=== PATIENT | male | born 1985 | race Caucasian/White ===

== ENCOUNTER → 2021-09-17 10:09 | Outpatient (BNVA) | payer OTHER, SELFPAY | PROVIDERS: PCP Internal Medicine; Visit Provider Internal Medicine | DX: M43.07 Spondylolysis, lumbosacral region (principal); M43.17 Spondylolisthesis, lumbosacral region | CPT/HCPCS: 99202 ==

== ENCOUNTER 2022-05-25 15:40 | Inpatient (IN) | payer OTHER, SELFPAY ==
--- NOTE | 2022-05-25 15:52 | ECG_ITS ---
Test Reason : GENERAL MEDICAL Blood Pressure : / mmHG Vent. Rate : 078 BPM Atrial Rate : 078 BPM P-R Int : 170 ms QRS Dur : 082 ms QT Int : 374 ms P-R-T Axes : 066 062 036 degrees QTc Int : 426 ms Normal sinus rhythm Normal ECG No previous ECGs available Referred By: Jenny Ibrahim Electronically Signed By:CALVIN TUTTLE MD
[2022-05-25 15:56] VITALS: BP 135/91; BP 147/90; PULSE 95; PULSE 97; RESP 16; TEMP 36.6; O2SAT 95; BMI 32.1
[2022-05-25] MEDS: OLANZapine 5 MG TABLET 10 MG PO (16:25)
[2022-05-25] MEDS: LORazepam 1 MG TABLET 2 MG PO (16:31)
--- NOTE | 2022-05-25 16:36 | ED.PSYCH ---
HPI - Psych General Chief Complaint: Psychiatric Symptoms Stated Complaint: SI Time Seen by Provider: 05/25/22 15:51 Source: patient and EMS Mode of arrival: EMS Limitations: no limitations History of Present Illness HPI Narrative: 36-year-old male denies any medical history reports that he went to [facility] looking for detox and psychiatric help and was unaware that they do not accept admits from the street therefore he was sent here for further evaluation treatment arrived via EMS. He reports that he normally takes 3 Percocet today for the past 10 years and over the past few months he has been hearing voices although does not state what they are telling him reports that they are only telling him to obey their orders. He reports that his mother had a history of schizophrenia and she although he was never diagnosed with any psychiatric disorders. He denies any other drug use or alcohol usage. He reports that he lives with his and their 2 kids. He reports that the voices are making him have thoughts of SI although no plan in place. Denies any HI. Denies any other symptoms complaints or concerns at this time. MD complaint: suicidal ideation, feels depressed, anxiety, substance abuse and hallucinations Onset (ago): month(s) Duration: constant Relieving factors: none Exacerbating factors: none Context: recent drug abuse ( Reports he took 3 Percocets earlier today) Associated psychiatric symptoms: depression, suicidal ideation, racing thoughts and auditory hallucinations Associated symptoms: denies other symptoms Treatments prior to arrival: none Related Data Home Medications Medication Instructions Recorded Confirmed atorvastatin 20 mg tablet 1 tab PO DAILY 05/25/22 05/25/22 citalopram 20 mg tablet 1 tab PO DAILY 05/25/22 05/25/22 oxycodone-acetaminophen 5 mg-325 1 tab PO Q8H PRN Pain 05/25/22 05/25/22 mg tablet Allergies Allergy/AdvReac Type Severity Reaction Status Date / Time Penicillins [PENICILLINS] Allergy Intermediate SWELLING Unverified 01/23/22 15:09 Review of Systems Review of Systems: Constitutional : No Fever, No Chills ENT/Mouth : No Ear Pain, No Nasal Congestion, No sore throat Eyes: No Eye Pain, No Swelling, No Redness Cardiovascular : No Chest Pain, No SOB Respiratory : No Cough, No Sputum, No Dyspnea Gastrointestinal : No ingestions, No Nausea, No Vomiting, No Diarrhea, No Hematochezia, No Melena Genitourinary : No Dysuria, No Urinary Frequency, No Hematuria Musculoskeletal : No Myalgias Skin : No Skin Lesions, No rash Neuro : No Weakness, No Numbness, No Paresthesias, No Dizziness, No Headache Psych : + Anxiety, + Depression, + SI, + thoughts of self injury, No HI, + AVH, Heme/Lymph: No Lymphadenopathy Endocrine : No Polyuria, No Polydipsia Yes all other systems are reviewed and are negative [facility] Past Medical History Attestation statement: The following information was validated with the patient. Source: old records reviewed and nursing notes reviewed Medical History Anxiety Chronic back pain Dyslipidemia Lumbar disc herniation Pars defect with spondylolisthesis Renal stone Right inguinal hernia Smoking Spondylolisthesis at L5-S1 level Surgical History H/O hernia repair History of tonsillectomy Social History Social History Patient Tobacco Use Status: Current everyday Tobacco user Tobacco use type: Cigarette Cigarette Packs Per Day: 0.5 Advance Directives: No Advance Directives Information Provided: No Physical Exam Vital Signs: Vital Signs: Last Vital Signs Temp 98 F 05/25/22 15:56 Pulse 97 05/25/22 15:56 Resp 16 05/25/22 15:56 BP 147/90 H 05/25/22 15:56 Pulse Ox 95 05/25/22 15:56 O2 Del Method 05/25/22 15:56 BMI result Body Mass Index 32.1 vital signs have been reviewed as normal and appeared to be correct. Blood pressure 149/70 Heart rate normal. Respiration rate normal. Temperature normal. Oxygen saturation normal. Appearance: Alert. Oriented X3. No acute distress. Head: Normal external exam. Normocephalic. Atraumatic. No Zamorano signs noted. No raccoon eyes noted Eyes: PERRLA. EOMI. Conjunctiva and sclera normal. Eyelids normal. ENT: EAC normal. TM's Normal. Pharynx normal. Uvula midline. Moist mucous membranes. No trismus noted. No drooling noted. No muffled voice noted. Neck: Normal inspection. Neck supple. FROM. No adenopathy. Thyroid Normal. No meningeal signs. No neck mass noted. CVS: Normal heart rate and rhythm. Heart sound normal. No murmurs noted. Pulses normal throughout. Respiratory: No respiratory distress. Painless inspiration. Breath sounds normal. No wheezes/rales/rhonchi noted. Chest nontender. No accessory muscle usage noted or decreased air movement noted. Abdomen: Soft and nontender. Bowel sounds normal in all 4 quadrants. No distention noted. No organomegaly noted. No visible injury noted. Back: No CVA tenderness. Full range of motion noted. Skin: Skin warm and dry. Normal skin color. Normal skin turgor. No rashes/lesions/lacerations noted. Extremities: No lower extremity edema. Extremities exhibit normal range of motion. Extremities nontender. Neuro: Oriented X 3. No motor deficit. No sensory deficit. Reflexes normal. CN's II-XII intact bilaterally? Psych: Appearance grossly normal, well-kept, mental status normal, speech and movement normal, speech clear, patient appears very sad and anxious along with depressed. Is cooperative although appears to be looking around to internal stimuli. Course Course Course Narrative: 16pm - 36-year-old male denies any medical history reports that he went to [facility] looking for detox and psychiatric help and was unaware that they do not accept admits from the street therefore he was sent here for further evaluation treatment arrived via EMS. He reports that he normally takes 3 Percocet today for the past 10 years and over the past few months he has been hearing voices although does not state what they are telling him reports that they are only telling him to obey their orders. He reports that his mother had a history of schizophrenia and she although he was never diagnosed with any psychiatric disorders. On exam patient appears to be responding to internal stimuli/auditory hallucinations. Otherwise no signs of trauma. Will obtain labs, EKG, drugs of abuse screen, ethanol level. Provide 2 mg of Ativan and 10 mg of Zyprexa and re-evaluate. Reevaluation(s) Reevaluation #1: - labs reviewed and BUN 8. AST/ ALT 52/51 otherwise all other labs are within normal limits. UA revealed by ketones otherwise no evidence of UTI. Patient negative for all drugs. Negative for EtOH. Negative for COVID. - Therefore at this time patient is placed in Physician observation because the patient is more time to be evaluated by crisis at this time patient is alert oriented x3. Not in any acute distress. No focal neuro deficits are noted. Normal steady gait. Lungs clear to auscultation. CV RRR. Abdomen is soft nontender. Will continue to monitor until he is evaluated by crisis. Time: 18:31 [facility] - Psych Medical Records Attestation: I reviewed the patient's medical records. Lab Data Attestation: I reviewed the patient's lab results. Result diagrams: 05/25/22 17:33 05/25/22 17:33 Labs: Lab Results 05/25/22 05/25/22 05/25/22 Range/Units 16:13 17:33 17:33 WBC 10.0 (4.8-10.8) X10*3/uL RBC 5.13 (4.60-5.80) X10*6/uL Hgb 15.5 (14.0-18.0) g/dl Hct 43.6 (42.0-52.0) % MCV 85.0 (80.0-98.0) fL MCH 30.2 (27.0-33.0) pg MCHC 35.6 (31.0-36.0) g/dl RDW 12.3 (11.0-16.0) % Plt Count 387 (160-400) X10*3/uL MPV 9.0 L (9.4-12.4) fL Immature Gran % (Auto) 0.2 (0.0-0.4) % Neut % (Auto) 66.9 (45-73) % Lymph % (Auto) 25.1 (20-40) % [place] % (Auto) 7.0 (2-11) % Eos % (Auto) 0.4 (0-4) % Baso % (Auto) 0.4 (0-2) % Lymph # (Auto) 2.5 (1.2-4.9) X10*3/uL [place] # (Auto) 0.7 (0.1-1.2) X10*3/uL Eos # (Auto) 0.0 (0.0-0.4) X10*3/uL Baso # (Auto) 0.0 (0.0-0.2) X10*3/uL Abs Immat Gran (auto) 0.02 (0.00-0.03) X10*3/uL Absolute Neuts (auto) 6.7 (2.0-8.3) x10*3/uL Absolute Nucleated RBC 0.000 (0.0-0.012) X10*3/uL Nucleated RBC % (auto) 0.0 (0.0-0.2) /100WBC PT 12.5 (10.0-13.1) SEC INR 1.1 (0.9-1.1) Sodium (135-145) mmol/L Potassium (3.3-5.1) mmol/L Chloride (96-108) mmol/L Carbon Dioxide (22-29) mmol/L Anion Gap (12-20) BUN (9-16) mg/dL Creatinine (0.5-1.4) mg/dL Estim Creat Clear Calc Estimated GFR Random Glucose (60-115) mg/dL Calcium (8.4-10.2) mg/dL Magnesium (1.6-2.6) mg/dL Total Bilirubin (0.0-1.0) mg/dL AST (5-37) U/L ALT (0-40) U/L Alkaline Phosphatase (39-117) U/L Total Protein (6.5-8.0) g/dL Albumin (3.5-5.0) g/dL Lipase (8-78) U/L Urine Color Urine Appearance Urine pH (5.0-8.0) Ur Specific [place] (1.005-1.025) Urine Protein (NEG-TRACE) MG/DL Urine Glucose (UA) (NEG) MG/DL Urine Ketones (NEG) MG/DL Urine Blood (NEG) Urine Nitrite (NEG) Ur Leukocyte Esterase (NEG) Urine Opiates Screen (Not Detect) Urine Fentanyl Screen (Not Detect) Acetaminophen (<30) mcg/mL Ur Barbiturates Screen (Not Detect) Ur Phencyclidine Scrn (Not Detect) Ur Amphetamines Screen (Not Detect) U Benzodiazepines Scrn (Not Detect) Urine Cocaine Screen (Not Detect) U Marijuana (THC) Screen (Not Detect) Ethyl Alcohol mg/dL COVID-19 (RIC) Negative (Negative) COVID-19 Clin Com See Note 05/25/22 05/25/22 05/25/22 Range/Units 17:33 17:38 17:38 WBC (4.8-10.8) X10*3/uL RBC (4.60-5.80) X10*6/uL Hgb (14.0-18.0) g/dl Hct (42.0-52.0) % MCV (80.0-98.0) fL MCH (27.0-33.0) pg MCHC (31.0-36.0) g/dl RDW (11.0-16.0) % Plt Count (160-400) X10*3/uL MPV (9.4-12.4) fL Immature Gran % (Auto) (0.0-0.4) % Neut % (Auto) (45-73) % Lymph % (Auto) (20-40) % [place] % (Auto) (2-11) % Eos % (Auto) (0-4) % Baso % (Auto) (0-2) % Lymph # (Auto) (1.2-4.9) X10*3/uL [place] # (Auto) (0.1-1.2) X10*3/uL Eos # (Auto) (0.0-0.4) X10*3/uL Baso # (Auto) (0.0-0.2) X10*3/uL Abs Immat Gran (auto) (0.00-0.03) X10*3/uL Absolute Neuts (auto) (2.0-8.3) x10*3/uL Absolute Nucleated RBC (0.0-0.012) X10*3/uL Nucleated RBC % (auto) (0.0-0.2) /100WBC PT (10.0-13.1) SEC INR (0.9-1.1) Sodium 136 (135-145) mmol/L Potassium 3.7 (3.3-5.1) mmol/L Chloride 99 (96-108) mmol/L Carbon Dioxide 27 (22-29) mmol/L Anion Gap 14 (12-20) BUN 8 L (9-16) mg/dL Creatinine 0.77 (0.5-1.4) mg/dL Estim Creat Clear Calc 159.9 Estimated GFR > 60 Random Glucose 100 (60-115) mg/dL Calcium 9.2 (8.4-10.2) mg/dL Magnesium 2.0 (1.6-2.6) mg/dL Total Bilirubin 0.5 (0.0-1.0) mg/dL AST 52 H (5-37) U/L ALT 51 H (0-40) U/L Alkaline Phosphatase 116 (39-117) U/L Total Protein 7.3 (6.5-8.0) g/dL Albumin 4.8 (3.5-5.0) g/dL Lipase 10 (8-78) U/L Urine Color YELLOW Urine Appearance CLEAR Urine pH 6.0 (5.0-8.0) Ur Specific [place] <= 1.005 (1.005-1.025) Urine Protein NEG (NEG-TRACE) MG/DL Urine Glucose (UA) NEG (NEG) MG/DL Urine Ketones 5 (NEG) MG/DL Urine Blood NEG (NEG) Urine Nitrite NEG (NEG) Ur Leukocyte Esterase NEG (NEG) Urine Opiates Screen Not Detected (Not Detect) Urine Fentanyl Screen Not Detected (Not Detect) Acetaminophen 2 (<30) mcg/mL Ur Barbiturates Screen Not Detected (Not Detect) Ur Phencyclidine Scrn Not Detected (Not Detect) Ur Amphetamines Screen Not Detected (Not Detect) U Benzodiazepines Scrn Not Detected (Not Detect) Urine Cocaine Screen Not Detected (Not Detect) U Marijuana (THC) Screen Not Detected (Not Detect) Ethyl Alcohol < 10 mg/dL COVID-19 (RIC) (Negative) COVID-19 Clin Com Discharge Plan Discharge Clinical Impression: Acute psychosis Patient Disposition: Still a Patient Prescriptions: No Action atorvastatin 20 mg tablet 1 tab PO DAILY oxycodone-acetaminophen 5-325 mg tablet 1 tab PO Q8H PRN (Reason: Pain) citalopram 20 mg tablet 1 tab PO DAILY
[2022-05-25 16:40] LABS: COVID-19 Test Negative (Negative)
[2022-05-25] MEDS: Nicotine 21 MG PATCH.TD24 TRANSDERMA (16:47)
[2022-05-25 17:45] LABS: MANUAL DIFF FLAG NO
[2022-05-25 17:48] LABS: Basophils Percent Auto 0.4 % (0-2); Eosinophils Percent Auto 0.4 % (0-4); Hematocrit 43.6 % (42.0-52.0); Hemoglobin 15.5 g/dl (14.0-18.0); Imm Gran Abs Auto 0.02 X10*3/uL (0.00-0.03); Imm Gran Pct Auto 0.2 % (0.0-0.4); Lymphocytes Absolute Auto 2.5 X10*3/uL (1.2-4.9); Lymphocytes Percent Auto 25.1 % (20-40); Mean Corpuscular HGB Conc 35.6 g/dl (31.0-36.0); Mean Corpuscular Hemoglobin 30.2 pg (27.0-33.0); Monocytes Absolute Auto 0.7 X10*3/uL (0.1-1.2); Neutrophils Absolute Auto 6.7 x10*3/uL (2.0-8.3); Neutrophils Percent Auto 66.9 % (45-73); Platelet Count 387 X10*3/uL (160-400); Red Blood Count 5.13 X10*6/uL (4.60-5.80); Red Cell Distribution Width 12.3 % (11.0-16.0)
[2022-05-25 17:51] LABS: Appearance Urine CLEAR; Color Urine YELLOW; Glucose Urine UA NEG (NEG); Leukocyte Esterase Urine NEG (NEG); Nitrite Urine NEG (NEG); Specific Gravity - Urine <= 1.005 (1.005-1.025); Urine Blood NEG (NEG); Urine Ketones 5 MG/DL (NEG); Urine Protein NEG (NEG-TRACE)
[2022-05-25 17:53] LABS: INTERNATIONAL NORM RATIO 1.1 (0.9-1.1); Prothrombin Time 12.5 SEC (10.0-13.1)
[2022-05-25 18:06] LABS: Amphetamine Screen Urine Not Detected (Not Detect); Barbiturates, Urine Not Detected (Not Detect); Benzodiazepines Screen Urine Not Detected (Not Detect); Cannabinoid Screen Urine Not Detected (Not Detect); Cocaine Screen Urine Not Detected (Not Detect); Fentanyl, urine Not Detected (Not Detect); Opiate Screen Urine Not Detected (Not Detect); Phencyclidine Screen Urine Not Detected (Not Detect)
[2022-05-25 18:08] LABS: Alanine Aminotransferase 51 U/L (0-40); Albumin Level 4.8 g/dL (3.5-5.0); Alkaline Phosphatase 116 U/L (39-117); Anion Gap 14 (12-20); Aspartate Amino Transferase 52 U/L (5-37); Bilirubin Total 0.5 mg/dL (0.0-1.0); Blood Urea Nitrogen 8 mg/dL (9-16); Calcium 9.2 mg/dL (8.4-10.2); Carbon Dioxide 27 mmol/L (22-29); Chloride 99 mmol/L (96-108); Creatinine Clr Calc Pharmacy 159.9; Estimated Glomerular Filt Rate > 60; Ethanol < 10 mg/dL; Glucose Random 100 mg/dL (60-115); Lipase 10 U/L (8-78); Potassium 3.7 mmol/L (3.3-5.1); Sodium 136 mmol/L (135-145); Total Protein 7.3 g/dL (6.5-8.0)
[2022-05-25 19:28] LABS: Acetaminophen LAB 2 mcg/mL (<30)
[2022-05-26 06:47] VITALS: BP 119/79; PULSE 71; RESP 17; TEMP 36.8; O2SAT 98
--- NOTE | 2022-05-26 06:57 | PC.NURSE ---
Patient slept through the night, no distress observed/reported, no AH reported during overnight shift, med rec completed/pending provider's approval, [facility]N referral completed/confirmed/pending ETA, behavior non concerning, VSS, will continue to monitor.
[2022-05-26] MEDS: LORazepam 1 MG TABLET PO ×2 (08:35→20:37)
[2022-05-26] MEDS: OLANZapine 5 MG TABLET PO (08:35)
--- NOTE | 2022-05-26 14:33 | PC.NURSE ---
pt sleeping, was made aware lunch was in room, will continue to monitor.
[2022-05-26] MEDS: Nicotine 21 MG PATCH.TD24 TRANSDERMA (15:26)
[2022-05-26] MEDS: Escitalopram Oxalate 10 MG TABLET PO (15:47)
[2022-05-26] MEDS: Atorvastatin Calcium 20 MG TABLET PO (15:47)
[2022-05-26] MEDS: oxyCODONE HCl Immed Release 5 MG TABLET PO ×2 (15:47→21:37)
[2022-05-26 19:08] VITALS: BP 119/76; PULSE 100; RESP 18; TEMP 36.5; O2SAT 95
[2022-05-26 22:15] VITALS: BP 130/81; PULSE 105; RESP 20; TEMP 36.5; O2SAT 96
[2022-05-26] MEDS: diphenhydrAMINE HCL 25 MG TABLET 50 MG PO (23:14)
[2022-05-26] MEDS: HaloperidoL 5 MG TABLET PO (23:14)
[2022-05-26] MEDS: LORazepam 1 MG TABLET 2 MG PO (23:15)
[2022-05-27 06:56] VITALS: BP 122/78; PULSE 94; RESP 18; TEMP 36.7; O2SAT 96
[2022-05-27] MEDS: Atorvastatin Calcium 20 MG TABLET PO (08:52)
[2022-05-27 08:54] LABS: Cholesterol 103 mg/dL; HDL Cholesterol 28 mg/dL; LDL Cholesterol Calculated 59 mg/dl; Triglycerides 84 mg/dL
[2022-05-27 08:56] LABS: Estimated Average Glucose 114 mg/dL; Hemoglobin A1c % 5.6 %
[2022-05-27] MEDS: oxyCODONE HCl Immed Release 5 MG TABLET PO ×3 (09:20→22:20)
[2022-05-27] MEDS: hydrOXYzine HCL 25 MG TABLET PO (09:28)
[2022-05-27] MEDS: Nicotine Polacrilex 2 MG GUM 4 MG BUCCAL ×2 (09:28→19:23)
--- NOTE | 2022-05-27 13:15 | HO.PSYADMNOT ---
HPI Date of Service: 05/27/22 Chief Complaint: Anxiety, Depression, SI, Voices, Substance use Sources of Information: patient interviewed, chart reviewed and crisis/core team assessment reviewed HPI Subjective Notes: Rodrigues Warning, Conditional Voluntary and 3 Day Healthcare Proxy: No Guardianship: No Medical Problems Affecting Mental Status: No Narrative: 36 yo male, to ER reporting auditory perceptual alterations-distracted, paranoia, unable to focus with constant whispering, substance use (Percocet, 3 tabs daily x 10 years), SI-plan to jump from a bridge, social anxiety, depression. Reports recent admit to [facility], however, unable to refill meds that were given to him after discharge. [employer] reports being awake with no sleep x 4d, no intake as well and unable to function. No OP alliances-reports no time for therapy and wanting prescriptions-has a job, , children, home and treatment can take up too much time. Pt reports I have to be doing something constantly, it is hard to remain still-I did not feel like this when I was younger. Pt asks for treatment for social anxiety and for alliance with a prescriber. He wants to avoid therapy as he feels he does not have the time. Per N report family states pt is having episodes of paranoia, negative assumptions, outbursts and accusations, believing that family is attempting to set him up, are lying to him. He has been isolative, depressed, intimidating. Sleep and appetite are poor with lability, hearing voices Past Psychiatric History: IP: [facility], March 2021 OP: No alliance currently Trials: Citalopram 20 mg bid per [facility] Medical Evaluation Reviewed: Yes [facility] Medical History (Updated 05/28/22 @ 08:50 by Barbara Swartz APRN) Anxiety Chronic back pain Dyslipidemia Lumbar disc herniation Major depressive disorder, recurrent episode, severe, with psychosis Pars defect with spondylolisthesis PTSD (post-traumatic stress disorder) Renal stone Right inguinal hernia Smoking Spondylolisthesis at L5-S1 level Narrative: Borderline Diabetic Renal appt 06/03/22. Surgical History H/O hernia repair History of tonsillectomy Family History: Mom-Schizophrenia Depression, Anxiety, Substance use No suicide attempts or completed suicides Social History: Born in [place], raised in [place], raised by maternal grandmother and in foster care. Adopted. Three sibs , two children (9 and 14) Completed 10th grade Unemployed Denies legal history or current issues- [facility] reports hx of several legal encounters-2016 spent 3 years incarcerated after an incident of paranoia Substance History: Percocet daily for 10 years Urine toxicology negative Hx of stimulant use-Adderall Nicotine 1PPD Trauma History: Affirms Diagnostics Vital Signs (24Hr): Vital Signs - 24 hr 05/26/22 19:08 05/26/22 22:15 05/27/22 06:56 Temperature 97.7 F 97.7 F 98.0 F Pulse Rate 100 105 H 94 Respiratory Rate 18 20 18 Blood Pressure 119/76 130/81 122/78 Pulse Oximetry 95 96 96 Oxygen Delivery Method Room Air Room Air BMI result Body Mass Index 32.1 Labs Results: 05/25/22 17:33 05/25/22 17:33 Labs: Laboratory Results - last 48 hr 05/25/22 05/25/22 05/25/22 16:13 17:33 17:33 WBC 10.0 RBC 5.13 Hgb 15.5 Hct 43.6 MCV 85.0 MCH 30.2 MCHC 35.6 RDW 12.3 Plt Count 387 MPV 9.0 L Immature Gran % (Auto) 0.2 Neut % (Auto) 66.9 Lymph % (Auto) 25.1 [place] % (Auto) 7.0 Eos % (Auto) 0.4 Baso % (Auto) 0.4 Lymph # (Auto) 2.5 [place] # (Auto) 0.7 Eos # (Auto) 0.0 Baso # (Auto) 0.0 Abs Immat Gran (auto) 0.02 Absolute Neuts (auto) 6.7 Absolute Nucleated RBC 0.000 Nucleated RBC % (auto) 0.0 PT 12.5 INR 1.1 Sodium Potassium Chloride Carbon Dioxide Anion Gap BUN Creatinine Estim Creat Clear Calc Estimated GFR Random Glucose Estimat Average Glucose Hemoglobin A1c % Calcium Magnesium Total Bilirubin AST ALT Alkaline Phosphatase Total Protein Albumin Triglycerides Cholesterol LDL Cholesterol, Calc HDL Cholesterol Lipase Urine Color Urine Appearance Urine pH Ur Specific [place] Urine Protein Urine Glucose (UA) Urine Ketones Urine Blood Urine Nitrite Ur Leukocyte Esterase Urine Opiates Screen Urine Fentanyl Screen Acetaminophen Ur Barbiturates Screen Ur Phencyclidine Scrn Ur Amphetamines Screen U Benzodiazepines Scrn Urine Cocaine Screen U Marijuana (THC) Screen Ethyl Alcohol COVID-19 (RIC) Negative COVID-19 Clin Com See Note 05/25/22 05/25/22 05/25/22 17:33 17:38 17:38 WBC RBC Hgb Hct MCV MCH MCHC RDW Plt Count MPV Immature Gran % (Auto) Neut % (Auto) Lymph % (Auto) [place] % (Auto) Eos % (Auto) Baso % (Auto) Lymph # (Auto) [place] # (Auto) Eos # (Auto) Baso # (Auto) Abs Immat Gran (auto) Absolute Neuts (auto) Absolute Nucleated RBC Nucleated RBC % (auto) PT INR Sodium 136 Potassium 3.7 Chloride 99 Carbon Dioxide 27 Anion Gap 14 BUN 8 L Creatinine 0.77 Estim Creat Clear Calc 159.9 Estimated GFR > 60 Random Glucose 100 Estimat Average Glucose Hemoglobin A1c % Calcium 9.2 Magnesium 2.0 Total Bilirubin 0.5 AST 52 H ALT 51 H Alkaline Phosphatase 116 Total Protein 7.3 Albumin 4.8 Triglycerides Cholesterol LDL Cholesterol, Calc HDL Cholesterol Lipase 10 Urine Color YELLOW Urine Appearance CLEAR Urine pH 6.0 Ur Specific [place] <= 1.005 Urine Protein NEG Urine Glucose (UA) NEG Urine Ketones 5 Urine Blood NEG Urine Nitrite NEG Ur Leukocyte Esterase NEG Urine Opiates Screen Not Detected Urine Fentanyl Screen Not Detected Acetaminophen 2 Ur Barbiturates Screen Not Detected Ur Phencyclidine Scrn Not Detected Ur Amphetamines Screen Not Detected U Benzodiazepines Scrn Not Detected Urine Cocaine Screen Not Detected U Marijuana (THC) Screen Not Detected Ethyl Alcohol < 10 COVID-19 (RIC) COVID-19 Clin Com 05/27/22 05/27/22 08:01 08:01 WBC RBC Hgb Hct MCV MCH MCHC RDW Plt Count MPV Immature Gran % (Auto) Neut % (Auto) Lymph % (Auto) [place] % (Auto) Eos % (Auto) Baso % (Auto) Lymph # (Auto) [place] # (Auto) Eos # (Auto) Baso # (Auto) Abs Immat Gran (auto) Absolute Neuts (auto) Absolute Nucleated RBC Nucleated RBC % (auto) PT INR Sodium Potassium Chloride Carbon Dioxide Anion Gap BUN Creatinine Estim Creat Clear Calc Estimated GFR Random Glucose Estimat Average Glucose 114 Hemoglobin A1c % 5.6 Calcium Magnesium Total Bilirubin AST ALT Alkaline Phosphatase Total Protein Albumin Triglycerides 84 Cholesterol 103 LDL Cholesterol, Calc 59 HDL Cholesterol 28 Lipase Urine Color Urine Appearance Urine pH Ur Specific [place] Urine Protein Urine Glucose (UA) Urine Ketones Urine Blood Urine Nitrite Ur Leukocyte Esterase Urine Opiates Screen Urine Fentanyl Screen Acetaminophen Ur Barbiturates Screen Ur Phencyclidine Scrn Ur Amphetamines Screen U Benzodiazepines Scrn Urine Cocaine Screen U Marijuana (THC) Screen Ethyl Alcohol COVID-19 (RIC) COVID-19 Clin Com Meds/Allergies Meds Home Medications Medication Instructions Recorded Confirmed Type atorvastatin 20 mg tablet 1 tab PO DAILY 05/25/22 05/25/22 History citalopram 20 mg tablet 1 tab PO DAILY 05/25/22 05/25/22 History oxycodone-acetaminophen 5 mg-325 1 tab PO Q8H PRN Pain 05/25/22 05/25/22 History mg tablet Allergies Allergies Allergy/AdvReac Type Severity Reaction Status Date / Time Penicillins [PENICILLINS] Allergy Intermediate SWELLING Verified 05/26/22 20:26 Mental Status Exam Mental Status Exam Patient Appearance: Appropriate Patient Orientation: Person, Place, Time and Situation Level of Consciousness: Alert Patient Behavior: Guarded, Talkative, Cooperative, Suspicious, Restless, Anxious, Resistive to Care, Distractible and Good Eye Contact Mood Description: Labile Affect Description: Labile Patient Cognition Impaired: No Ability to Follow Directions: Good Speech Pattern: Spontaneous Speech Memory Description: Intact Hallucinations: Auditory Delusions: Paranoid Ideation Perceptual Disturbances: Depersonalization and Derealization Thought Process: Rumination and Goal Oriented Thought Content: positive for [place], positive for Circumstantial, positive for Perseveration and positive for Suicidal Ideation Depressive Symptoms: Increased Anxiety, Difficulty Sleeping, Changes in Appetite and Low Self Esteem Abnormal Motor Activity Signs and Symptoms: Restlessness Judgement: Fair Assessment & Plan Assessment & Plan (1) Major depressive disorder, recurrent episode, severe, with psychosis: Status: Acute Code(s): F33.3 - Major depressive disorder, recurrent, severe with psychotic symptoms (2) PTSD (post-traumatic stress disorder): Status: Acute Code(s): F43.10 - Post-traumatic stress disorder, unspecified Plan 36 yo male, reporting auditory perceptual alterations, SI, anxiety, depression. Plan: Diagnostics- TSH, B12,Folate Olanzapine 10 mg bid Gabapentin 300 mg tid Escitalopram 10 mg daily Collateral contacts Discharge planning-pt prefers PCP to prescribe medications for him and to avoid psychotherapy. Patient educated on: medication risk/benefits and therapeutic strategies Informed Consent: understands Reason for continued inpatient stay Substantial Risk for: harm to self, inability to function and rapid decompensation
[2022-05-27] MEDS: Gabapentin 300 MG CAPSULE PO ×2 (14:31→22:20)
[2022-05-27] MEDS: Nicotine 21 MG PATCH.TD24 TRANSDERMA (14:32)
[2022-05-27] MEDS: Acetaminophen 325 MG TABLET 650 MG PO (19:22)
[2022-05-27 22:00] VITALS: BP 131/76; PULSE 95; RESP 18; TEMP 36.1; O2SAT 97
[2022-05-27] MEDS: traZODone HCL 50 MG TABLET PO (22:20)
[2022-05-27] MEDS: OLANZapine 10 MG TABLET PO (22:20)
[2022-05-28 06:00] VITALS: BP 128/76; PULSE 81; RESP 18; TEMP 36.4; O2SAT 96
[2022-05-28] MEDS: OLANZapine 10 MG TABLET PO ×2 (09:10→21:44)
[2022-05-28] MEDS: Escitalopram Oxalate 10 MG TABLET PO (09:10)
[2022-05-28] MEDS: Atorvastatin Calcium 20 MG TABLET PO (09:10)
[2022-05-28] MEDS: Gabapentin 300 MG CAPSULE PO ×3 (09:10→21:43)
[2022-05-28] MEDS: Nicotine 21 MG PATCH.TD24 TRANSDERMA (09:12)
[2022-05-28] MEDS: oxyCODONE HCl Immed Release 5 MG TABLET PO ×2 (09:21→19:06)
[2022-05-28 11:35] LABS: Thyroid Stimulating Hormone 0.77 uIU/mL (0.32-4.0)
--- NOTE | 2022-05-28 12:14 | HO.PSYCHPN ---
Subjective Subjective Date of Service: 05/28/22 Reason For Visit: Anxiety, Depression, SI, Voices, Substance use Subjective Notes: Conditional Voluntary Healthcare Proxy: No Guardianship: No Medical Problems Affecting Mental Status: No Interim History: Three day notice to on 05/29. Pt reports he is ready to discharge Tolerating medication regime. Unsure if he will have time to do follow up appts. Message left for PCP Laya [phone] to see if they would be willing to do psychopharmacology with pt-no call back as yet. Medication Compliance: Yes Side effects from medications: No Attending Groups: Intermittent Review of Systems Acute medical concerns: No Medical Review of Systems: unchanged Review of Systems Psychiatric: Reports anxiety (apprehensive-wanting to return to his work) and Reports suicidal ideation (denies) Mental Status Exam Mental Status Exam Patient Appearance: Appropriate Patient Orientation: Person, Place, Time and Situation Level of Consciousness: Alert Patient Behavior: Talkative, Cooperative, Restless, Anxious, Resistive to Care, Distractible and Good Eye Contact Mood Description: Constricted Affect Description: Constricted Patient Cognition Impaired: No Ability to Follow Directions: Good Speech Pattern: Spontaneous Speech Memory Description: Intact Perceptual Disturbances: Depersonalization and Derealization Thought Process: Rumination and Goal Oriented Thought Content: positive for [place], positive for Circumstantial and positive for Perseveration Depressive Symptoms: Increased Anxiety and Low Self Esteem Abnormal Motor Activity Signs and Symptoms: Restlessness Judgement: Fair Diagnostics Vital Signs (24Hr): Vital Signs - 24 hr 05/27/22 22:00 05/28/22 06:00 Temperature 97.0 F 97.6 F Pulse Rate 95 81 Respiratory Rate 18 18 Blood Pressure 131/76 128/76 Pulse Oximetry 97 96 Oxygen Delivery Method Room Air BMI result Body Mass Index 32.1 Labs Results: 05/25/22 17:33 05/25/22 17:33 Labs: Laboratory Results - last 48 hr 05/27/22 05/27/22 05/28/22 08:01 08:01 10:29 Estimat Average Glucose 114 Hemoglobin A1c % 5.6 Triglycerides 84 Cholesterol 103 LDL Cholesterol, Calc 59 HDL Cholesterol 28 TSH 0.77 Medications Medications Current Medications Acetaminophen (Acetaminophen 325 Mg Tablet) 650 mg PO Q6H PRN PRN Reason: Headache/Pain Mild Scale (1-3) Last Admin: 05/27/22 19:22 Dose: 650 mg Al Hydroxide/Mg Hydroxide (Magnesium Hydrox/Alum Hydrox 30 Ml Oral.Susp) 30 ml PO Q6H PRN PRN Reason: Heartburn/Nausea Atorvastatin Calcium (Atorvastatin Calcium 20 Mg Tablet) 20 mg PO DAILY [facility] Last Admin: 05/28/22 09:10 Dose: 20 mg Diphenhydramine HCl (Diphenhydramine Hcl 25 Mg Tablet) 50 mg PO Q4H PRN PRN Reason: agitation Last Admin: 05/26/22 23:14 Dose: 50 mg Escitalopram Oxalate (Escitalopram Oxalate 10 Mg Tablet) 10 mg PO DAILY [facility] Last Admin: 05/28/22 09:10 Dose: 10 mg Gabapentin (Gabapentin 300 Mg Capsule) 300 mg PO TID [facility] Last Admin: 05/28/22 09:10 Dose: 300 mg Haloperidol (Haloperidol 5 Mg Tablet) 5 mg PO Q4H PRN PRN Reason: agitation Last Admin: 05/26/22 23:14 Dose: 5 mg Hydroxyzine HCl (Hydroxyzine Hcl 25 Mg Tablet) 25 mg PO Q6H PRN PRN Reason: Anxiety Last Admin: 05/27/22 09:28 Dose: 25 mg Lorazepam (Lorazepam 1 Mg Tablet) 2 mg PO Q4H PRN PRN Reason: agitation Last Admin: 05/26/22 23:15 Dose: 2 mg Magnesium Hydroxide (Milk Of Magnesia 30 Ml Oral.Susp) 30 ml PO DAILY PRN PRN Reason: Constipation Nicotine (Nicotine 21 Mg Patch.Td24) 21 mg TRANSDERMA DAILY [facility] Last Admin: 05/28/22 09:12 Dose: 21 mg Nicotine Polacrilex (Nicotine Polacrilex 2 Mg Gum) 4 mg BUCCAL Q2H PRN PRN Reason: Nicotine Cravings Last Admin: 05/27/22 19:23 Dose: 4 mg Olanzapine (Olanzapine 10 Mg Tablet) 10 mg PO BID [facility] Last Admin: 05/28/22 09:10 Dose: 10 mg Oxycodone HCl (Oxycodone Hcl Immed Release 5 Mg Tablet) 5 mg PO Q8H PRN PRN Reason: Pain Last Admin: 05/28/22 09:21 Dose: 5 mg Trazodone HCl (Trazodone Hcl 50 Mg Tablet) 50 mg PO BEDTIME PRN PRN Reason: Insomnia Last Admin: 05/27/22 22:20 Dose: 50 mg Allergies Allergies Allergy/AdvReac Type Severity Reaction Status Date / Time Penicillins [PENICILLINS] Allergy Intermediate SWELLING Verified 05/26/22 20:26 Assessment & Plan Assessment & Plan (1) Major depressive disorder, recurrent episode, severe, with psychosis: Status: Acute Code(s): F33.3 - Major depressive disorder, recurrent, severe with psychotic symptoms (2) PTSD (post-traumatic stress disorder): Status: Acute Code(s): F43.10 - Post-traumatic stress disorder, unspecified Plan 36 yo male, reporting auditory perceptual alterations, SI, anxiety, depression. Plan: Diagnostics- TSH, B12,Folate Olanzapine 10 mg bid Gabapentin 300 mg tid Escitalopram 10 mg daily Collateral contacts Discharge planning-pt prefers PCP to prescribe medications for him and to avoid psychotherapy. 05/28/22 Three day notice expires 05/29/22-pt to discharge Continue current regime I spent minutes with the patient and/or on the patient floor today, greater than?50% of which was spent counseling/coordinating care. Patient educated on: medication risk/benefits and therapeutic strategies Informed Consent: understands Reason for contiued inpatient stay Substantial Risk for: rapid decompensation
[2022-05-28 12:21] LABS: Folate 8.5 ng/mL (> or = 4.0); Vitamin B12 877 pg/mL (200-900)
[2022-05-28] MEDS: Acetaminophen 325 MG TABLET 650 MG PO (14:51)
[2022-05-28] MEDS: Nicotine Polacrilex 2 MG GUM 4 MG BUCCAL ×2 (16:48→19:10)
[2022-05-28 19:00] VITALS: BP 135/83; PULSE 101; TEMP 36.4; O2SAT 97
[2022-05-28] MEDS: HaloperidoL 5 MG TABLET PO (21:43)
[2022-05-28] MEDS: diphenhydrAMINE HCL 25 MG TABLET 50 MG PO (21:44)
[2022-05-28] MEDS: LORazepam 1 MG TABLET 2 MG PO (21:44)
[2022-05-29] MEDS: Gabapentin 300 MG CAPSULE PO (08:49)
[2022-05-29] MEDS: Atorvastatin Calcium 20 MG TABLET PO (08:49)
[2022-05-29] MEDS: OLANZapine 10 MG TABLET PO (08:49)
[2022-05-29] MEDS: oxyCODONE HCl Immed Release 5 MG TABLET PO (08:49)
[2022-05-29] MEDS: Escitalopram Oxalate 10 MG TABLET PO (08:49)
[2022-05-29] MEDS: Nicotine 21 MG PATCH.TD24 TRANSDERMA (08:54)
--- NOTE | 2022-05-29 16:11 | P.DS_ITS ---
DS: Providers Provider Date of Service: 05/29/22 Date of admission: 05/26/22 21:00 Date of discharge: 05/29/22 Primary care physician: Unknown Physician Admitting clinician: Barbara Swartz Attending physician on admission: Quinn Calvillo Attending physician on discharge: Quinn Calvillo Discharging clinician: Barbara Swartz DS: Diagnosis Discharge Diagnosis (1) Major depressive disorder, recurrent episode, severe, with psychosis: Status: Acute (2) PTSD (post-traumatic stress disorder): Status: Acute DS: Medications Discharge Medications Home Medications: Home Medications Medication Instructions Recorded Confirmed oxycodone-acetaminophen 5 mg-325 1 tab PO Q8H PRN Pain 05/25/22 05/25/22 mg tablet Previous Rx's Medication Instructions Recorded atorvastatin 20 mg tablet 1 tab PO DAILY #30 tabs 05/29/22 escitalopram oxalate 10 mg tablet 10 mg PO DAILY #30 tabs 05/29/22 gabapentin 300 mg capsule 300 mg PO TID #45 caps 05/29/22 nicotine (polacrilex) 2 mg gum 4 mg buccal Q2H PRN Nicotine 05/29/22 Cravings #50 ea nicotine 21 mg/24 hr daily 21 mg transdermal DAILY #28 ea 05/29/22 transdermal patch olanzapine 10 mg tablet 10 mg PO BID #30 tabs 05/29/22 Mental Status Exam Mental Status Exam Patient Appearance: Appropriate Patient Orientation: Person, Place, Time and Situation Level of Consciousness: Alert Patient Behavior: Talkative, Cooperative, Restless, Anxious, Resistive to Care, Distractible and Good Eye Contact Mood Description: Constricted Affect Description: Constricted Patient Cognition Impaired: No Ability to Follow Directions: Good Speech Pattern: Spontaneous Speech Memory Description: Intact Perceptual Disturbances: Depersonalization and Derealization Thought Process: Rumination and Goal Oriented Thought Content: positive for [place], positive for [place] and positive for [place] Depressive Symptoms: Increased Anxiety and Low Self Esteem Abnormal Motor Activity Signs and Symptoms: Restlessness Judgement: Fair Data Data Completed and Pending Completed studies during hospitalization [Text1]: 05/25/22 05/25/22 05/25/22 16:13 17:33 17:33 WBC 10.0 RBC 5.13 Hgb 15.5 Hct 43.6 MCV 85.0 MCH 30.2 MCHC 35.6 RDW 12.3 Plt Count 387 MPV 9.0 L Immature Gran % (Auto) 0.2 Neut % (Auto) 66.9 Lymph % (Auto) 25.1 [place] % (Auto) 7.0 Eos % (Auto) 0.4 Baso % (Auto) 0.4 Lymph # (Auto) 2.5 [place] # (Auto) 0.7 Eos # (Auto) 0.0 Baso # (Auto) 0.0 Abs Immat Gran (auto) 0.02 Absolute Neuts (auto) 6.7 Absolute Nucleated RBC 0.000 Nucleated RBC % (auto) 0.0 PT 12.5 INR 1.1 Sodium Potassium Chloride Carbon Dioxide Anion Gap BUN Creatinine Estim Creat Clear Calc Estimated GFR Random Glucose Estimat Average Glucose Hemoglobin A1c % Calcium Magnesium Total Bilirubin AST ALT Alkaline Phosphatase Total Protein Albumin Triglycerides Cholesterol LDL Cholesterol, Calc HDL Cholesterol Lipase Vitamin B12 Folate TSH Urine Color Urine Appearance Urine pH Ur Specific [place] Urine Protein Urine Glucose (UA) Urine Ketones Urine Blood Urine Nitrite Ur Leukocyte Esterase Urine Opiates Screen Urine Fentanyl Screen Acetaminophen Ur Barbiturates Screen Ur Phencyclidine Scrn Ur Amphetamines Screen U Benzodiazepines Scrn Urine Cocaine Screen U Marijuana (THC) Screen Ethyl Alcohol COVID-19 (RIC) Negative COVID-19 Clin Com See Note 05/25/22 05/25/22 05/25/22 17:33 17:38 17:38 WBC RBC Hgb Hct MCV MCH MCHC RDW Plt Count MPV Immature Gran % (Auto) Neut % (Auto) Lymph % (Auto) [place] % (Auto) Eos % (Auto) Baso % (Auto) Lymph # (Auto) [place] # (Auto) Eos # (Auto) Baso # (Auto) Abs Immat Gran (auto) Absolute Neuts (auto) Absolute Nucleated RBC Nucleated RBC % (auto) PT INR Sodium 136 Potassium 3.7 Chloride 99 Carbon Dioxide 27 Anion Gap 14 BUN 8 L Creatinine 0.77 Estim Creat Clear Calc 159.9 Estimated GFR > 60 Random Glucose 100 Estimat Average Glucose Hemoglobin A1c % Calcium 9.2 Magnesium 2.0 Total Bilirubin 0.5 AST 52 H ALT 51 H Alkaline Phosphatase 116 Total Protein 7.3 Albumin 4.8 Triglycerides Cholesterol LDL Cholesterol, Calc HDL Cholesterol Lipase 10 Vitamin B12 Folate TSH Urine Color YELLOW Urine Appearance CLEAR Urine pH 6.0 Ur Specific [place] <= 1.005 Urine Protein NEG Urine Glucose (UA) NEG Urine Ketones 5 Urine Blood NEG Urine Nitrite NEG Ur Leukocyte Esterase NEG Urine Opiates Screen Not Detected Urine Fentanyl Screen Not Detected Acetaminophen 2 Ur Barbiturates Screen Not Detected Ur Phencyclidine Scrn Not Detected Ur Amphetamines Screen Not Detected U Benzodiazepines Scrn Not Detected Urine Cocaine Screen Not Detected U Marijuana (THC) Screen Not Detected Ethyl Alcohol < 10 COVID-19 (RIC) COVID-19 Clin Com 05/27/22 05/27/22 05/28/22 08:01 08:01 10:29 WBC RBC Hgb Hct MCV MCH MCHC RDW Plt Count MPV Immature Gran % (Auto) Neut % (Auto) Lymph % (Auto) [place] % (Auto) Eos % (Auto) Baso % (Auto) Lymph # (Auto) [place] # (Auto) Eos # (Auto) Baso # (Auto) Abs Immat Gran (auto) Absolute Neuts (auto) Absolute Nucleated RBC Nucleated RBC % (auto) PT INR Sodium Potassium Chloride Carbon Dioxide Anion Gap BUN Creatinine Estim Creat Clear Calc Estimated GFR Random Glucose Estimat Average Glucose 114 Hemoglobin A1c % 5.6 Calcium Magnesium Total Bilirubin AST ALT Alkaline Phosphatase Total Protein Albumin Triglycerides 84 Cholesterol 103 LDL Cholesterol, Calc 59 HDL Cholesterol 28 Lipase Vitamin B12 877 Folate 8.5 TSH Urine Color Urine Appearance Urine pH Ur Specific [place] Urine Protein Urine Glucose (UA) Urine Ketones Urine Blood Urine Nitrite Ur Leukocyte Esterase Urine Opiates Screen Urine Fentanyl Screen Acetaminophen Ur Barbiturates Screen Ur Phencyclidine Scrn Ur Amphetamines Screen U Benzodiazepines Scrn Urine Cocaine Screen U Marijuana (THC) Screen Ethyl Alcohol COVID-19 (RIC) COVID-19 Clin Com 05/28/22 10:29 WBC RBC Hgb Hct MCV MCH MCHC RDW Plt Count MPV Immature Gran % (Auto) Neut % (Auto) Lymph % (Auto) [place] % (Auto) Eos % (Auto) Baso % (Auto) Lymph # (Auto) [place] # (Auto) Eos # (Auto) Baso # (Auto) Abs Immat Gran (auto) Absolute Neuts (auto) Absolute Nucleated RBC Nucleated RBC % (auto) PT INR Sodium Potassium Chloride Carbon Dioxide Anion Gap BUN Creatinine Estim Creat Clear Calc Estimated GFR Random Glucose Estimat Average Glucose Hemoglobin A1c % Calcium Magnesium Total Bilirubin AST ALT Alkaline Phosphatase Total Protein Albumin Triglycerides Cholesterol LDL Cholesterol, Calc HDL Cholesterol Lipase Vitamin B12 Folate TSH 0.77 Urine Color Urine Appearance Urine pH Ur Specific [place] Urine Protein Urine Glucose (UA) Urine Ketones Urine Blood Urine Nitrite Ur Leukocyte Esterase Urine Opiates Screen Urine Fentanyl Screen Acetaminophen Ur Barbiturates Screen Ur Phencyclidine Scrn Ur Amphetamines Screen U Benzodiazepines Scrn Urine Cocaine Screen U Marijuana (THC) Screen Ethyl Alcohol COVID-19 (RIC) COVID-19 Clin Com DS: Summary Hospital Course Hospital Course: Admission to adult psychiatry for exacerbation of symptoms of major depression with psychotic features and PTSD. Celexa was changed to Lexapro. Gabapentin and Olanzapine were added and tolerated. Symptoms were stabilized and pt discharged in 3 days per his request. Time spent discussing smoking cessation with patient: 3 to 10 minutes Status at Discharge Functional status at discharge: independent ambulation Overall status at discharge: patient is progressing back to baseline Time Spent with Patient Time attestation: Total time spent providing and/or coordinating discharge services: 35 Time spent: Greater than 30 minutes Discharge Plan Discharge Patient Disposition: Home, Self-Care Discharge Diagnosis: Recurrent major depression with psychotic features PTSD Referrals: Kiara Thakur [Other] - 06/05/22 11:00 am (Initial Diagnostic Intake for Therapy Appointment in Office at [facility] You must attend appointment to receive medication management services ) Pamela Carmona [Other] - 07/02/22 11:00 am (Initial psychiatric evaluation by medication provider Appointment is by tele-health. Check your email for a link to your appointment.) Pamela Carmona [Other] - 07/31/22 10:00 am (Medication Management appointment Appointment is by tele-health check your email for a link to the appointment.) [facility] [Other] - 1 Week Discharge Medications: New nicotine 21 mg/24 hr Patch 24 Hour 21 mg transdermal DAILY Qty: 28 0RF nicotine (polacrilex) 2 mg Gum 4 mg buccal Q2H PRN (Reason: Nicotine Cravings) Qty: 50 0RF olanzapine 10 mg Tablet 10 mg PO BID Qty: 30 1RF gabapentin 300 mg Capsule 300 mg PO TID Qty: 45 1RF escitalopram oxalate 10 mg Tablet 10 mg PO DAILY Qty: 30 0RF Continued oxycodone-acetaminophen 5-325 mg tablet 1 tab PO Q8H PRN (Reason: Pain) atorvastatin 20 mg tablet 1 tab PO DAILY Qty: 30 0RF Discontinued citalopram 20 mg tablet 1 tab PO DAILY Discharge Orders: Discharge Order (Routine); Ordered 05/29/22 Ordered By: Barbara Swartz Diet: Advance to usual diet Activity on Discharge: As tolerated Stand Alone Forms: Patient Portal Discharge page, Community Support Care Plan Goals: Mood Stabilization Utilize coping skills Health Concerns: Recurrent major depression with psychotic features PTSD Plan of Treatment: Attend follow up appointments Take medications as directed Assessment: non-psychotic non-suicidal Discharge Date/Time: 05/29/22 11:43
== END 2022-05-29 11:43 | disposition home or self-care (01) | DRG 885 ==
LOC: HO.ED 16:58 → HO.PM5 05-26 21:14
PROVIDERS: Physician Assistant Medical; Admitting Provider Psychiatry & Neurology Psychiatry; Emergency Provider Emergency Medicine; Visit Provider Clinical Nurse Specialist Psychiatric/Mental Health, Adult
DX: F33.3 Major depressive disorder, recurrent, severe with psychotic symptoms (principal); R45.851 Suicidal ideations; F43.10 Post-traumatic stress disorder, unspecified; Z87.442 Personal history of urinary calculi; F17.210 Nicotine dependence, cigarettes, uncomplicated; Z71.6 Tobacco abuse counseling; Z20.822 Contact with and (suspected) exposure to COVID-19; Z88.0 Allergy status to penicillin; Z79.899 Other long term (current) drug therapy
CPT/HCPCS: 36415; 80053; 80061; 80143; 80307; 81003; 82077; 82607; 82746; 83036; 83690; 83735; 84443; 85025; 85610; 87635; 93005; 99285; Q0163

== ENCOUNTER 2023-12-28 11:52 | Emergency (ER) | payer OTHER, SELFPAY ==
--- NOTE | 2023-12-28 12:55 | ED_ITS ---
HPI - Psych General Chief Complaint: Psychiatric Symptoms Stated Complaint: Auditory hallucinations Time Seen by Provider: 12/28/23 13:11 Related Data Home Medications Medication Instructions Recorded Confirmed oxycodone-acetaminophen 5 mg-325 1 tab PO Q8H PRN Pain 05/25/22 05/25/22 mg tablet Previous Rx's Medication Instructions Recorded atorvastatin 20 mg tablet 1 tab PO DAILY #30 tabs 05/29/22 escitalopram oxalate 10 mg tablet 10 mg PO DAILY #30 tabs 05/29/22 gabapentin 300 mg capsule 300 mg PO TID #45 caps 05/29/22 nicotine (polacrilex) 2 mg gum 4 mg buccal Q2H PRN Nicotine 05/29/22 Cravings #50 ea nicotine 21 mg/24 hr daily 21 mg transdermal DAILY #28 ea 05/29/22 transdermal patch olanzapine 10 mg tablet 10 mg PO BID #30 tabs 05/29/22 atorvastatin 20 mg tablet 20 mg PO DAILY #14 tabs 06/18/22 escitalopram oxalate 10 mg tablet 10 mg PO DAILY #14 tabs 06/18/22 (Lexapro) gabapentin 300 mg capsule 300 mg PO TID #42 caps 06/18/22 olanzapine 10 mg tablet 10 mg PO BID #28 tabs 06/18/22 Allergies Allergy/AdvReac Type Severity Reaction Status Date / Time Penicillins [PENICILLINS] Allergy Intermediate SWELLING Verified 12/28/23 12:56 PMFSH Past Medical History Medical History PTSD (post-traumatic stress disorder) Major depressive disorder, recurrent episode, severe, with psychosis Pars defect with spondylolisthesis Right inguinal hernia Renal stone Lumbar disc herniation Anxiety Dyslipidemia Chronic back pain Smoking Spondylolisthesis at L5-S1 level Surgical History History of tonsillectomy H/O hernia repair Social History Social History Household Members: Spouse and Children Housing: House Do you presently have visiting nurse or other home services: No Patient Tobacco Use Status: Current everyday Tobacco user Tobacco use type: Cigarette Cigarette Packs Per Day: 0.5 Cigarettes Per Day: 10 Smoked in Last 30 Days: No e-Cigarette/Vaping Use: Never Used Second Hand Smoke Exposure: No Use of substances other than those prescribed or required for medical reasons: No Advance Directives: No Advance Directives Information Provided: No service: No Sexual orientation: Straight/Heterosexual Physical Exam 2 Vital Signs: Vital Signs: Last Vital Signs Temp 97.7 F 12/28/23 16:46 Pulse 92 12/28/23 16:46 Resp 18 12/28/23 16:46 BP 133/84 12/28/23 16:46 Pulse Ox 98 12/28/23 16:46 O2 Del Method Room Air 12/28/23 16:46 BMI result Body Mass Index 27.6 Course Course Course Narrative: RME:?38 yo male with hx of PTSD, MDD with psychosis here for eval of auditory hallucinations x >1 month. these voices are telling him to harm himself. he states that he has not yet done anything but has a plan to hang himself . denies HI. denies TH or VH. denies illicit substance use. denies etoh consumption. cannot recall the names of his current medications and is non compliant with them. labs, UA, urine drug screen, EKG and care team consult ordered Full HPI, ROS and PE to be performed by the primary ED provider. Reevaluation(s) Reevaluation #1: Evaluated by the care team and felt to meet inpatient criteria, placed on a section 12. Time: 17:07 Medical Decision Making Lab Data 12/28/23 13:10 12/28/23 13:10 Labs: Lab Results 12/28/23 12/28/23 Range/Units 13:10 13:20 WBC 8.5 (4.8-10.8) X10*3/uL RBC 5.19 (4.60-5.80) X10*6/uL Hgb 15.1 (14.0-18.0) g/dl Hct 42.9 (42.0-52.0) % MCV 82.7 (80.0-98.0) fL MCH 29.1 (27.0-33.0) pg MCHC 35.2 (31.0-36.0) g/dl RDW 12.2 (11.0-16.0) % Plt Count 382 (160-400) X10*3/uL MPV 8.5 L (9.4-12.4) fL Immature Gran % (Auto) 0.1 (0.0-0.4) % Neut % (Auto) 63.9 (45-73) % Lymph % (Auto) 28.3 (20-40) % [place] % (Auto) 6.8 (2-11) % Eos % (Auto) 0.5 (0-4) % Baso % (Auto) 0.4 (0-2) % Lymph # (Auto) 2.4 (1.2-4.9) X10*3/uL [place] # (Auto) 0.6 (0.1-1.2) X10*3/uL Eos # (Auto) 0.0 (0.0-0.4) X10*3/uL Baso # (Auto) 0.0 (0.0-0.2) X10*3/uL Abs Immat Gran (auto) 0.01 (0.00-0.03) X10*3/uL Absolute Neuts (auto) 5.4 (2.0-8.3) x10*3/uL Absolute Nucleated RBC 0.000 (0.0-0.012) X10*3/uL Nucleated RBC % (auto) 0.0 (0.0-0.2) /100WBC Sodium 138 (135-145) mmol/L Potassium 3.7 (3.3-5.1) mmol/L Chloride 104 (96-108) mmol/L Carbon Dioxide 25 (22-29) mmol/L Anion Gap 13 (12-20) BUN 8 L (9-16) mg/dL Creatinine 0.69 (0.5-1.4) mg/dL Estim Creat Clear Calc 146.9 Estimated GFR > 60 Random Glucose 99 (60-115) mg/dL Calcium 9.6 (8.4-10.2) mg/dL Magnesium 1.9 (1.6-2.6) mg/dL Total Bilirubin 0.4 (0.0-1.0) mg/dL AST 15 (5-37) U/L ALT 19 (0-40) U/L Alkaline Phosphatase 71 (39-117) U/L Total Protein 7.4 (6.5-8.0) g/dL Albumin 4.5 (3.5-5.0) g/dL Lipase 28 (8-78) U/L Urine Color Yellow Urine Appearance Clear Urine pH 6.0 (5.0-9.0) Ur Specific [place] 1.020 (1.005-1.025) Urine Protein Trace (Neg-Trace) mg/dL Urine Glucose (UA) Negative (Negative) mg/dL Urine Ketones Trace (Negative) mg/dL Urine Blood Trace H (Negative) Urine Nitrite Negative (Negative) Ur Leukocyte Esterase Trace H (Negative) Urine RBC 3-5 H (0-2) /HPF Urine WBC 0-5 (0-5) /HPF Ur Squamous Epith Cells 0-2 (0-2) /HPF Urine Bacteria None Seen (None Seen) Hyaline Casts 0-2 (0-2) /LPF Salicylates < 5.0 L (15-30) mg/dL Urine Opiates Screen POSITIVE H (Not Detect) Urine Fentanyl Screen Not Detected (Not Detect) Ur Barbiturates Screen Not Detected (Not Detect) Ur Phencyclidine Scrn Not Detected (Not Detect) Ur Amphetamines Screen Not Detected (Not Detect) U Benzodiazepines Scrn Not Detected (Not Detect) Urine Cocaine Screen Not Detected (Not Detect) U Marijuana (THC) Screen Not Detected (Not Detect) Ethyl Alcohol < 10 mg/dL Discharge Plan Discharge Clinical Impression: Chronic post-traumatic stress disorder, Auditory hallucination Patient Disposition: Still a Patient Prescriptions: No Action oxycodone-acetaminophen 5-325 mg tablet 1 tab PO Q8H PRN (Reason: Pain) nicotine 21 mg/24 hr Patch 24 Hour 21 mg transdermal DAILY Qty: 28 0RF nicotine (polacrilex) 2 mg Gum 4 mg buccal Q2H PRN (Reason: Nicotine Cravings) Qty: 50 0RF olanzapine 10 mg Tablet 10 mg PO BID Qty: 30 1RF gabapentin 300 mg Capsule 300 mg PO TID Qty: 45 1RF escitalopram oxalate 10 mg Tablet 10 mg PO DAILY Qty: 30 0RF atorvastatin 20 mg tablet 1 tab PO DAILY Qty: 30 0RF escitalopram oxalate [Lexapro] 10 mg tablet 10 mg PO DAILY Qty: 14 0RF gabapentin 300 mg capsule 300 mg PO TID Qty: 42 0RF olanzapine 10 mg tablet 10 mg PO BID Qty: 28 0RF atorvastatin 20 mg tablet 20 mg PO DAILY Qty: 14 0RF Interventions: Stephenson-Suicide Risk Severity Scale Last Done: 12/28/23 16:40
[2023-12-28 12:57] VITALS: BP 128/78; PULSE 95; RESP 16; TEMP 36.8; O2SAT 98; BMI 27.6
--- NOTE | 2023-12-28 13:02 | ECG_ITS ---
Test Reason : AUDITORY HALLUCINAIONS Blood Pressure : / mmHG Vent. Rate : 076 BPM Atrial Rate : 076 BPM P-R Int : 156 ms QRS Dur : 090 ms QT Int : 376 ms P-R-T Axes : 026 073 048 degrees QTc Int : 423 ms Normal sinus rhythm Normal ECG When compared with ECG of 25-MAY-2022 17:07, No significant change was found Referred By: Selena Garcia Electronically Signed By:CALVIN TUTTLE MD
--- NOTE | 2023-12-28 13:12 | ED_ITS ---
HPI - Psych General Chief Complaint: Psychiatric Symptoms Stated Complaint: Auditory hallucinations Time Seen by Provider: 12/28/23 13:11 Source: patient Limitations: no limitations History of Present Illness HPI Narrative: 38 years old man presented to the emergency department with auditory hallucination, he has history of PTSD he states that the voices are telling him to harm himself. Patient has history of prior psych hospitalization last 1oneon file was May 31 complaint: hallucinations and other (This is a 38 years old male with history of PTSD presented to the emergency department with a chief complaint of auditory hallucination denies SI HI) Onset (ago): month(s) (1 month) Duration: constant History of same: Yes Relieving factors: none Exacerbating factors: none Associated psychiatric symptoms: none Related Data Home Medications Medication Instructions Recorded Confirmed citalopram 20 mg tablet 20 mg PO DAILY 12/28/23 12/28/23 oxycodone 5 mg tablet 5 mg PO Q8H PRN pain 12/28/23 12/28/23 Previous Rx's Medication Instructions Recorded atorvastatin 20 mg tablet 1 tab PO DAILY #30 tabs 05/29/22 nicotine (polacrilex) 2 mg gum 4 mg buccal Q2H PRN Nicotine 05/29/22 Cravings #50 ea Allergies Allergy/AdvReac Type Severity Reaction Status Date / Time Penicillins [PENICILLINS] Allergy Intermediate SWELLING Verified 12/28/23 12:56 Review of Systems 2 Constitutional: Constitutional: Reports no additional constitutional complaints ENT: Reports system reviewed and no additional complaints, except as documented Neurologic: Reports behavioral changes Psychiatric: Psychiatric: Reports anxiety and Reports behavioral changes [facility] Past Medical History Attestation statement: The following information was validated with the patient. Medical History PTSD (post-traumatic stress disorder) Major depressive disorder, recurrent episode, severe, with psychosis Pars defect with spondylolisthesis Right inguinal hernia Renal stone Lumbar disc herniation Anxiety Dyslipidemia Chronic back pain Smoking Spondylolisthesis at L5-S1 level Surgical History History of tonsillectomy H/O hernia repair Social History Social History Household Members: Spouse and Children Housing: House Do you presently have visiting nurse or other home services: No Patient Tobacco Use Status: Current everyday Tobacco user Tobacco use type: Cigarette Cigarette Packs Per Day: 0.5 Cigarettes Per Day: 10 Smoked in Last 30 Days: No e-Cigarette/Vaping Use: Never Used Second Hand Smoke Exposure: No Use of substances other than those prescribed or required for medical reasons: No Advance Directives: No Advance Directives Information Provided: No Healthcare Proxy: No Guardian: No service: No Sexual orientation: Straight/Heterosexual Physical Exam 2 Vital Signs: Vital Signs: Last Vital Signs Temp 97.6 F 12/29/23 07:44 Pulse 83 12/29/23 07:44 Resp 18 12/29/23 07:44 BP 110/73 12/29/23 07:44 Pulse Ox 96 12/29/23 07:44 O2 Del Method Room Air 12/29/23 07:44 BMI result Body Mass Index 27.6 Const: General: cooperative Nutritional Appearance: well nourished O rientation/consciousness: patient oriented x3 HEENT: Head: Yes normal to inspection Face and sinus: Yes normal facial exam Mouth: Normal oral and palatal mucosa present Neck: Neck: Yes normal visual inspection and Yes full ROM Chest: Chest palpation & inspection: normal inspection of the chest Resp: Effort & Inspection: normal respiratory effort Auscultation: clear to auscultation bilaterally Cardio: Jugular venous distension: no JVD Rate: regular rate Rhythm: r egular rhythm GI: Inspection: Yes normal to inspection Palpation (GI): Soft to palpation Skin: General skin exam: no rashes or lesions noted and elasticity normal Neuro: General: patient oriented x3 and gait normal Gait exam (Neuro): N ormal gait present Course Reevaluation(s) Reevaluation #1: SIGNED OUT TO dR Millie ordaz evladan pending Time: 16:06 Medications Administered Discontinued Medications Generic Name Dose Route Start Last Admin Trade Name Freq PRN Reason Stop Dose Admin Acetaminophen 650 mg 12/29/23 02:57 12/29/23 03:03 Acetaminophen 325 Mg Tablet PO 12/29/23 02:58 650 mg ONCE ONE Administration Nicotine 7 mg 12/28/23 16:50 12/28/23 17:19 Nicotine 7 Mg Patch.[id number] TRANSDERMA 12/28/23 16:51 7 mg ONCE ONE Administration Trazodone HCl 50 mg 12/29/23 02:57 12/29/23 03:03 Trazodone Hcl 50 Mg Tablet PO 12/29/23 02:58 50 mg ONCE ONE Administration Medical Decision Making Medical Decision Making [facility] Narrative: Patient presented with auditory hallucination will consult psych Differential Diagnosis Differential Diagnoses: The differential diagnosis associated with the presentation includes PTSD/psychosis/drug abuse Admission/Observation Consideration of admission/observation: Escalation of care including admission/observation considered Lab Data 12/28/23 13:10 12/28/23 13:10 Labs: Lab Results 12/28/23 12/28/23 Range/Units 13:10 13:20 WBC 8.5 (4.8-10.8) X10*3/uL RBC 5.19 (4.60-5.80) X10*6/uL Hgb 15.1 (14.0-18.0) g/dl Hct 42.9 (42.0-52.0) % MCV 82.7 (80.0-98.0) fL MCH 29.1 (27.0-33.0) pg MCHC 35.2 (31.0-36.0) g/dl RDW 12.2 (11.0-16.0) % Plt Count 382 (160-400) X10*3/uL MPV 8.5 L (9.4-12.4) fL Immature Gran % (Auto) 0.1 (0.0-0.4) % Neut % (Auto) 63.9 (45-73) % Lymph % (Auto) 28.3 (20-40) % Jack % (Auto) 6.8 (2-11) % Eos % (Auto) 0.5 (0-4) % Baso % (Auto) 0.4 (0-2) % Lymph # (Auto) 2.4 (1.2-4.9) X10*3/uL Jack # (Auto) 0.6 (0.1-1.2) X10*3/uL Eos # (Auto) 0.0 (0.0-0.4) X10*3/uL Baso # (Auto) 0.0 (0.0-0.2) X10*3/uL Abs Immat Gran (auto) 0.01 (0.00-0.03) X10*3/uL Absolute Neuts (auto) 5.4 (2.0-8.3) x10*3/uL Absolute Nucleated RBC 0.000 (0.0-0.012) X10*3/uL Nucleated RBC % (auto) 0.0 (0.0-0.2) /100WBC Sodium 138 (135-145) mmol/L Potassium 3.7 (3.3-5.1) mmol/L Chloride 104 (96-108) mmol/L Carbon Dioxide 25 (22-29) mmol/L Anion Gap 13 (12-20) BUN 8 L (9-16) mg/dL Creatinine 0.69 (0.5-1.4) mg/dL Estim Creat Clear Calc 146.9 Estimated GFR > 60 Random Glucose 99 (60-115) mg/dL Calcium 9.6 (8.4-10.2) mg/dL Magnesium 1.9 (1.6-2.6) mg/dL Total Bilirubin 0.4 (0.0-1.0) mg/dL AST 15 (5-37) U/L ALT 19 (0-40) U/L Alkaline Phosphatase 71 (39-117) U/L Total Protein 7.4 (6.5-8.0) g/dL Albumin 4.5 (3.5-5.0) g/dL Lipase 28 (8-78) U/L Urine Color Yellow Urine Appearance Clear Urine pH 6.0 (5.0-9.0) Ur Specific [place] 1.020 (1.005-1.025) Urine Protein Trace (Neg-Trace) mg/dL Urine Glucose (UA) Negative (Negative) mg/dL Urine Ketones Trace (Negative) mg/dL Urine Blood Trace H (Negative) Urine Nitrite Negative (Negative) Ur Leukocyte Esterase Trace H (Negative) Urine RBC 3-5 H (0-2) /HPF Urine WBC 0-5 (0-5) /HPF Ur Squamous Epith Cells 0-2 (0-2) /HPF Urine Bacteria None Seen (None Seen) Hyaline Casts 0-2 (0-2) /LPF Salicylates < 5.0 L (15-30) mg/dL Urine Opiates Screen POSITIVE H (Not Detect) Urine Fentanyl Screen Not Detected (Not Detect) Ur Barbiturates Screen Not Detected (Not Detect) Ur Phencyclidine Scrn Not Detected (Not Detect) Ur Amphetamines Screen Not Detected (Not Detect) U Benzodiazepines Scrn Not Detected (Not Detect) Urine Cocaine Screen Not Detected (Not Detect) U Marijuana (THC) Screen Not Detected (Not Detect) Ethyl Alcohol < 10 mg/dL Independent Interpretation I performed an independent interpretation of an: EKG (Sinus rhythm rate 76 no ischemic changes to the EKG was interpreted by me) Discharge Plan Discharge Clinical Impression: Chronic post-traumatic stress disorder, Auditory hallucination Patient Disposition: Still a Patient Prescriptions: No Action nicotine (polacrilex) 2 mg Gum 4 mg buccal Q2H PRN (Reason: Nicotine Cravings) Qty: 50 0RF atorvastatin 20 mg tablet 1 tab PO DAILY Qty: 30 0RF citalopram 20 mg tablet 20 mg PO DAILY oxycodone 5 mg tablet 5 mg PO Q8H PRN (Reason: pain) Interventions: [place]-Suicide Risk Severity Scale Last Done: 12/28/23 16:40
[2023-12-28 13:14] LABS: MANUAL DIFF FLAG NO
[2023-12-28 13:16] LABS: Basophils Percent Auto 0.4 % (0-2); Eosinophils Percent Auto 0.5 % (0-4); Hematocrit 42.9 % (42.0-52.0); Hemoglobin 15.1 g/dl (14.0-18.0); Imm Gran Abs Auto 0.01 X10*3/uL (0.00-0.03); Imm Gran Pct Auto 0.1 % (0.0-0.4); Lymphocytes Absolute Auto 2.4 X10*3/uL (1.2-4.9); Lymphocytes Percent Auto 28.3 % (20-40); Mean Corpuscular HGB Conc 35.2 g/dl (31.0-36.0); Mean Corpuscular Hemoglobin 29.1 pg (27.0-33.0); Mean Corpuscular Volume 82.7 fL (80.0-98.0); Mean Platelet Volume 8.5 fL (9.4-12.4); Monocytes Absolute Auto 0.6 X10*3/uL (0.1-1.2); Monocytes Percent Auto 6.8 % (2-11); Neutrophils Absolute Auto 5.4 x10*3/uL (2.0-8.3); Neutrophils Percent Auto 63.9 % (45-73); Platelet Count 382 X10*3/uL (160-400); Red Blood Count 5.19 X10*6/uL (4.60-5.80); Red Cell Distribution Width 12.2 % (11.0-16.0); White Blood Count 8.5 X10*3/uL (4.8-10.8)
[2023-12-28 13:28] LABS: Appearance Urine Clear; Color Urine Yellow; Glucose Urine UA Negative (Negative); Leukocyte Esterase Urine Trace (Negative); Nitrite Urine Negative (Negative); UMIC TRIGGER UACC YES; Urine Blood Trace (Negative); Urine Ketones Trace mg/dL (Negative); Urine Protein Trace mg/dL (Neg-Trace)
--- NOTE | 2023-12-28 13:31 | PC.NURSE ---
PT CHANGED OVER INTO HOSPITAL ATTIRE, BELONGINGS STORED IN LOCKER #11 IN POD. URINE SPECIMEN SENT.
[2023-12-28 13:33] LABS: Bacteria Urine None Seen (None Seen); Hyaline Casts Urine 0-2 /LPF (0-2); Squamous Epithelial Cell Urine 0-2 /HPF (0-2); WBC Urine 0-5 /HPF (0-5)
[2023-12-28 13:39] LABS: Amphetamine Screen Urine Not Detected (Not Detect); Barbiturates, Urine Not Detected (Not Detect); Benzodiazepines Screen Urine Not Detected (Not Detect); Cannabinoid Screen Urine Not Detected (Not Detect); Cocaine Screen Urine Not Detected (Not Detect); Fentanyl, urine Not Detected (Not Detect); Opiate Screen Urine POSITIVE (Not Detect); Phencyclidine Screen Urine Not Detected (Not Detect)
[2023-12-28 13:44] LABS: Alanine Aminotransferase 19 U/L (0-40); Albumin Level 4.5 g/dL (3.5-5.0); Alkaline Phosphatase 71 U/L (39-117); Anion Gap 13 (12-20); Aspartate Amino Transferase 15 U/L (5-37); Bilirubin Total 0.4 mg/dL (0.0-1.0); Blood Urea Nitrogen 8 mg/dL (9-16); Calcium 9.6 mg/dL (8.4-10.2); Carbon Dioxide 25 mmol/L (22-29); Chloride 104 mmol/L (96-108); Creatinine Clr Calc Pharmacy 146.9; Estimated Glomerular Filt Rate > 60; Ethanol < 10 mg/dL; Glucose Random 99 mg/dL (60-115); Lipase 28 U/L (8-78); Magnesium 1.9 mg/dL (1.6-2.6); Potassium 3.7 mmol/L (3.3-5.1); Salicylate < 5.0 mg/dL (15-30); Sodium 138 mmol/L (135-145); Total Protein 7.4 g/dL (6.5-8.0)
--- NOTE | 2023-12-28 16:42 | PC.NURSE ---
pt comes in for increased depression. denies SI/HI. requesting nicotine patch for tobacco pouches . provider notified. pt called to check and make sure pt is here, left number with t/w. the phone number for her in pt's chart is incorrect. Isamar (): [phone]
[2023-12-28 16:46] VITALS: BP 133/84; PULSE 92; RESP 18; TEMP 36.5; O2SAT 98
[2023-12-28] MEDS: Nicotine 7 MG PATCH.TD24 TRANSDERMA (17:19)
--- NOTE | 2023-12-28 18:36 | MHC.CARE ---
Care team evaluation complete. Pt is an inpatient bedsearch and is on a section 12A for safety until placement is secured. Current ED provider, RN and Pt are aware of the plan.
[2023-12-28 18:44] VITALS: BP 129/76; PULSE 85; RESP 16; TEMP 36.7; O2SAT 98
--- NOTE | 2023-12-28 19:03 | PC.NURSE ---
called pt for med rec. left with NAYANA Peterson. pt denies SI/HI. pt inpatient bed search. aware. diet order in and kitchen called. 1:1 sitter at bedside. plan of care ongoing.
[2023-12-29 02:55] VITALS: BP 103/73; PULSE 65; RESP 17; TEMP 36.8; O2SAT 98
[2023-12-29] MEDS: Acetaminophen 325 MG TABLET 650 MG PO (03:03)
[2023-12-29] MEDS: traZODone HCL 50 MG TABLET PO ×2 (03:03→22:06)
[2023-12-29 07:44] VITALS: BP 110/73; PULSE 83; RESP 18; TEMP 36.4; O2SAT 96
--- NOTE | 2023-12-29 07:59 | PC.NURSE ---
PT SLEEPING, SITTER MAINTAINED
--- NOTE | 2023-12-29 08:49 | MHC.CARE ---
RAD Team conducted [place] bed[place], referral being reviewed by judah dooley, Kristopher harman, [facility], [facility] , [facility] , [facility] , [facility],and [facility]. RAD team to f/u with facilities to see outcome
[2023-12-29] MEDS: Atorvastatin Calcium 20 MG TABLET PO (09:01)
[2023-12-29] MEDS: Escitalopram Oxalate 10 MG TABLET PO (09:01)
[2023-12-29] MEDS: oxyCODONE HCl Immed Release 5 MG TABLET PO ×2 (09:29→18:04)
[2023-12-29 10:31] VITALS: BP 111/76; PULSE 71; RESP 20; TEMP 36.9; O2SAT 97
--- NOTE | 2023-12-29 13:25 | PC.NURSE ---
REPORT TO DARRYL FROM [facility]
[2023-12-29] MEDS: Nicotine 7 MG PATCH.TD24 TRANSDERMA (13:42)
[2023-12-29 13:54] LABS: COVID-19 Test Negative (Negative); IDNOW Serial# 08D9AD1C
--- NOTE | 2023-12-29 14:00 | MHC.CARE ---
Pt pre-accepted to [facility] for tomorrow (12/30) Arrival time-10am Accepting Doctor- Tonya Jiang Address- [address] [place] [id number]
[2023-12-29] MEDS: LORazepam 1 MG TABLET PO (14:44)
[2023-12-29 15:58] VITALS: BP 120/72; PULSE 76; RESP 16; TEMP 36.7; O2SAT 96
--- NOTE | 2023-12-29 16:29 | PC.NURSE ---
pt currently sleeping at this time/in no apparent distress. resting w/ the lights off. respirations even and unlabored. 1:1 sitter present. call castellano placed within reach.
--- NOTE | 2023-12-29 17:46 | PC.NURSE ---
pt denies SI/HI at this time. pt states that nicotine patch was not effective post medication administration. pt requesting home prescription of oxycodone. pt states he takes 5mg of oxycodone PRN. PRN order not ordered by provider. pt was provided w/ one time dose at 0929 this morning.med rec completed stating oxycodone was confirmed for PRN q8hr. will notify/speak w/ provider. 1:1 sitter remains present.
--- NOTE | 2023-12-29 18:05 | PC.NURSE ---
pt medicated per provider order.
[2023-12-29 19:59] VITALS: BP 122/80; PULSE 89; RESP 18; TEMP 36.7; O2SAT 98
--- NOTE | 2023-12-29 20:02 | MHC.EDTECH ---
This tech took over care of patient at 1900,hourly rounds and vitals completed, Patient is requesting a nicotine patch RN was made aware. Sitter at bedside for safety
[2023-12-29] MEDS: Nicotine 21 MG PATCH.TD24 TRANSDERMA (20:39)
[2023-12-30 04:59] VITALS: BP 125/76; PULSE 70; RESP 14; TEMP 36.8; O2SAT 97
--- NOTE | 2023-12-30 07:41 | PC.NURSE ---
nurse to nurse given to valerie jones
[2023-12-30] MEDS: Atorvastatin Calcium 20 MG TABLET PO (08:20)
[2023-12-30] MEDS: Escitalopram Oxalate 10 MG TABLET PO (08:20)
[2023-12-30] MEDS: oxyCODONE HCl Immed Release 5 MG TABLET PO (08:24)
== END 2023-12-30 08:36 ==
PROVIDERS: Physician Assistant Medical; Emergency Provider Emergency Medicine
DX: F43.12 Post-traumatic stress disorder, chronic (principal); R44.0 Auditory hallucinations; R45.850 Homicidal ideations; R45.851 Suicidal ideations; Z11.52 Encounter for screening for COVID-19; F41.9 Anxiety disorder, unspecified; E78.5 Hyperlipidemia, unspecified; F17.210 Nicotine dependence, cigarettes, uncomplicated; Z79.899 Other long term (current) drug therapy; Z79.02 Long term (current) use of antithrombotics/antiplatelets
CPT/HCPCS: 36415; 80053; 80179; 80307; 81001; 83690; 83735; 85025; 87635; 93005; 99285; S9485

== ENCOUNTER → 2023-12-28 13:02 | Outpatient (BNV) | payer OTHER, SELFPAY | PROVIDERS: Emergency Provider Emergency Medicine; Visit Provider Internal Medicine Cardiovascular Disease | DX: R44.0 Auditory hallucinations (principal) | CPT/HCPCS: 93010 ==